=== PATIENT | male | born 1970 | race Caucasian/White ===

== ENCOUNTER 2020-09-06 06:39 | Outpatient (NON) | payer BC, SELFPAY ==
[2020-09-06 23:55] LABS: SARS-CoV-2 RNA PCR Negative
== END 2020-09-06 06:40 ==
LOC: ANHCOVIDDT 06:48
PROVIDERS: PCP Family Medicine; Visit Provider Family Medicine
DX: Z20.828 Contact with and (suspected) exposure to other viral communicable diseases (principal); R50.9 Fever, unspecified; R52 Pain, unspecified
CPT/HCPCS: 87635; C9803; U0003

== ENCOUNTER 2023-03-19 09:30 | Outpatient (CLI) | payer OTHER, SELFPAY ==
[2023-03-19 10:30] LABS: Kit Draw Collected
== END 2023-03-19 09:31 | disposition home or self-care (01) ==
LOC: ANHGOSHLAB 09:31
PROVIDERS: PCP Family Medicine; Visit Provider Nurse Practitioner Family
DX: E78.2 Mixed hyperlipidemia (principal); R07.9 Chest pain, unspecified; K75.81 Nonalcoholic steatohepatitis (NASH); E66.3 Overweight
CPT/HCPCS: 36415

== ENCOUNTER 2023-04-18 08:30 | Outpatient (CLI) | payer OTHER, SELFPAY ==
--- NOTE | 2023-04-18 | EST_ITS ---
Patient Info Name: Martín La Age: 52 years : 1970 Gender: Male Ht: 73 in Wt: 255 lbs BSA: 2.48 m2 Exam Date: 04/18/2023 8:59 AM Exam Location: [facility] Stress Patient Status: Outpatient Admit Date: 04/18/2023 Staff Ordering Physician: Deborah Winters Attending Provider: Deborah Winters Exercise Technologist: Jess Apple RDCS Exercise Physician: Papa Irving DO Exam Type: CA stress test treadmill Study Info Indications R07.9 - Chest pain, unspecified A treadmill exercise stress test was performed. Summary 1. 1. Negative Dennis exercise stress test for ischemic ST changes by ECG criteria. 2. 2. Good functional capacity, achieving 12 METs of workload. 3. 3. Appropriate HR response to exercise. 4. 4. Appropriate HR recovery at 1 minute post exercise. 5. 5. No imaging with stress testing. 6. 6. Patient informed of the above results. Protocol: Dennis Stress ECG Details Stage: REST Duration (min): 0 min : 57 sec Speed (mph): 0.0 Grade (%): 0 HR (bpm): 62 SBP (mmHg): 130 DBP (mmHg): 83 METS: --- Stage: REST Duration (min): 6 min : 28 sec Speed (mph): 0.0 Grade (%): 0 HR (bpm): 70 SBP (mmHg): 130 DBP (mmHg): 83 METS: --- Stage: STAGE 1 Duration (min): 1 min : 0 sec Speed (mph): 1.7 Grade (%): 10 HR (bpm): 91 SBP (mmHg): 130 DBP (mmHg): 83 METS: --- Stage: STAGE 1 Duration (min): 2 min : 0 sec Speed (mph): 1.7 Grade (%): 10 HR (bpm): 103 SBP (mmHg): 130 DBP (mmHg): 83 METS: --- Stage: STAGE 1 Duration (min): 3 min : 0 sec Speed (mph): 1.7 Grade (%): 10 HR (bpm): 100 SBP (mmHg): 156 DBP (mmHg): 71 METS: --- Stage: STAGE 2 Duration (min): 1 min : 0 sec Speed (mph): 2.5 Grade (%): 12 HR (bpm): 110 SBP (mmHg): 156 DBP (mmHg): 71 METS: --- Stage: STAGE 2 Duration (min): 2 min : 0 sec Speed (mph): 2.5 Grade (%): 12 HR (bpm): 121 SBP (mmHg): 154 DBP (mmHg): 67 METS: --- Stage: STAGE 2 Duration (min): 3 min : 0 sec Speed (mph): 2.5 Grade (%): 12 HR (bpm): 123 SBP (mmHg): 154 DBP (mmHg): 67 METS: --- Stage: STAGE 3 Duration (min): 1 min : 0 sec Speed (mph): 3.4 Grade (%): 14 HR (bpm): 133 SBP (mmHg): 162 DBP (mmHg): 52 METS: --- Stage: STAGE 3 Duration (min): 2 min : 0 sec Speed (mph): 3.4 Grade (%): 14 HR (bpm): 140 SBP (mmHg): 162 DBP (mmHg): 52 METS: --- Stage: STAGE 3 Duration (min): 3 min : 0 sec Speed (mph): 3.4 Grade (%): 14 HR (bpm): 145 SBP (mmHg): 189 DBP (mmHg): 60 METS: --- Stage: STAGE 4 Duration (min): 1 min : 0 sec Speed (mph): 4.2 Grade (%): 16 HR (bpm): 152 SBP (mmHg): 189 DBP (mmHg): 60 METS: --- Stage: STAGE 4 Duration (min): 1 min : 0 sec Speed (mph): 4.2 Grade (%): 16 HR (bpm): 152 SBP (mmHg): 189 DBP (mmHg): 60 METS: --- Stage:
== END 2023-04-18 08:31 | disposition home or self-care (01) ==
LOC: ANHCARD 08:32
PROVIDERS: PCP Family Medicine; Visit Provider Nurse Practitioner Family
DX: R07.9 Chest pain, unspecified (principal); E66.9 Obesity, unspecified
CPT/HCPCS: 93017